=== PATIENT | female | born 1955 | race Caucasian/White ===

== ENCOUNTER 2019-01-12 01:01 | Outpatient (CLI) | payer MEDICARE, OTHER, SELFPAY ==
[2019-01-12 13:16] LABS: Abs Immature Grans 0.02 k/cumm (0.0-0.09); Absolute Basophil Count 0.04 k/cumm (0.0-0.2); Absolute Eosinophil Count 0.27 k/cumm (0.0-0.7); Absolute Lymphocyte Count 1.48 k/cumm (1.2-3.4); Absolute Monocyte Count 0.46 k/cumm (0.11-0.7); Absolute Neutrophil Count 2.21 k/cumm (1.2-6.7); Basophils % 0.9; HCT 38.1 % (36.0-46.0); Immature Grans % 0.4; Mean Corp. HGB Concentration 34.1 g/dL (32.0-36.0); Mean Corpuscular Hemoglobin 31.5 pg (27.0-33.0); Mean Corpuscular Volume 92.3 fL (80-95); Mean Platelet Volume 8.9 fL (8.0-11.0); Monocytes % 10.3; Neutrophils % 49.4; Platelet Count 252 x1000/uL (130-400); RBC 4.13 m/cumm (4.00-5.20); RBC Distribution Width 12.3 % (11.7-14.6); White Blood Cell Count 4.48 k/cumm (4.4-10.8)
--- NOTE | 2019-01-12 13:16 | DI.RAD_ITS ---
SYMPTOMS/DIAGNOSIS: CANCER OF ORAL CAVITY, C06.9; HYPOTHYROIDISM, E03.9; H/O ETOH ABUSE, Z87.898 PA AND LATERAL CHEST: The heart is normal in size. The lungs are clear. The mediastinal structures and pleura appear intact. CONCLUSION: Normal chest.
[2019-01-12 13:44] LABS: ALT 27 U/L (12-78); AST 29 U/L (15-37); Albumin 4.3 g/dL (3.4-5.0); Alkaline Phosphatase 127 U/L (46-116); Anion Gap 10.5 mmol/L (3-11); BUN 15 mg/dL (7-18); Bilirubin, Total 0.4 mg/dL (0.2-1.0); CO2 27.5 mmol/L (21.0-32.0); CREATININE 0.87 mg/dL (0.55-1.02); Calcium 10.1 mg/dL (8.5-10.1); Chloride 102 mmol/L (98-107); Glucose 94 mg/dL (70-100); Potassium 4.1 mmol/L (3.5-5.1); Sodium 140 mmol/L (136-145); TSH 15.63 uIU/mL (0.358-3.74); Total Protein 7.8 g/dL (6.4-8.2)
== END 2019-01-12 01:21 ==
PROVIDERS: PCP Internal Medicine; Visit Provider Nurse Practitioner Adult Health
DX: E03.9 Hypothyroidism, unspecified (principal); C06.9 Malignant neoplasm of mouth, unspecified; F10.11 Alcohol abuse, in remission
CPT/HCPCS: 36415; 80053; 71046; 84443; 85025